=== PATIENT | female | born 1990 | race Caucasian/White ===

== ENCOUNTER 2018-08-26 23:17 | Emergency (ER) | payer OTHER ==
[~2018-08-26] VITALS: Ht 162.6 cm; Wt 70.3 kg
[2018-08-26 23:20] VITALS: BP 134/75
--- NOTE | 2018-08-26 23:26 | NUR ---
PT TAKEN TO BED 1
--- NOTE | 2018-08-26 23:26 | NUR ---
Pt presents to ED with suprapubic pain radiating to left lower back and burning with urination 03/02 pain x1 day. Pt also c/o spotting with controlled bleeding x1 day. Pt states but has first prenatl apointment on 08/31/18. Pt Has x4 living children. X2 misscarriage with DNC. VSS. Positioned in bed for comfort. ER MD aware. Continue to monitor.
[2018-08-27 00:06] LABS: BASOPHILS % (AUTO) 0.6 % (0.0-2.0); EOSINOPHILS # (AUTO) 0.1 K/uL (0-0.4); EOSINOPHILS % (AUTO) 0.7 % (0.0-4.0); HEMATOCRIT 38.5 % (36-48); HEMOGLOBIN 12.6 g/dL (12.0-16.0); LYMPHOCYTES # (AUTO) 2.9 K/uL (2.5-16.5); LYMPHOCYTES % (AUTO) 35.3 % (20.5-51.1); MEAN CORPUSCULAR HEMOGLOBIN 30 pg (27-31); MEAN CORPUSCULAR HGB CONC 33 g/dL (33-37); MEAN CORPUSCULAR VOLUME 92.1 fL (80-94); MONOCYTES # (AUTO) 0.8 K/uL (0.8-1.0); MONOCYTES % (AUTO) 9.1 % (1.7-9.3); NEUTROPHILS # (AUTO) 4.5 K/uL (1.8-7.7); NEUTROPHILS % (AUTO) 54.3 % (42.2-75.2); PLATELET COUNT (AUTO) 254 K/uL (140-450); RED BLOOD CELL COUNT(AUTO) 4.19 MIL/uL (4.20-5.40); RED CELL DISTRIBUTION WIDTH 12.7 % (11.6-13.7); WHITE BLOOD COUNT (AUTO) 8.3 K/uL (4.8-10.8)
[2018-08-27 00:26] LABS: ANION GAP 15.1 (8-16); CARBON DIOXIDE 24.4 mmol/L (21-32); CREATININE 0.6 mg/dL (0.6-1.3); POTASSIUM 3.5 mmol/L (3.5-5.1)
[2018-08-27 00:27] LABS: APPEARANCE,URINE CLOUDY (CLEAR); BILIRUBIN,URINE NEGATIVE (NEGATIVE); BLOOD, URINE 3+ (NEGATIVE); COLOR,URINE YELLOW (YELLOW); LEUKOCYTE ESTERASE ,URINE 3+ (NEGATIVE); NITRITE, URINE NEGATIVE (NEGATIVE); UGLUCOSE NEGATIVE (NEGATIVE)
[2018-08-27 00:29] LABS: RBC,URINE TOO NUMEROUS TO COUN /HPF (0-5); WBC,URINE TOO MANY TO COUNT /HPF (0-5)
[2018-08-27 01:13] VITALS: BP 134/75
== END 2018-08-27 01:13 | disposition home or self-care (01) ==
LOC: MED 23:17
DX: O23.41 Unspecified infection of urinary tract in pregnancy, first trimester (principal); Z3A.08 8 weeks gestation of pregnancy
CPT/HCPCS: 36415; 76801; 80048; 81001; 81025; 84702; 85025; 86900; 86901; 87086; 99284; Q0092

== ENCOUNTER 2018-10-28 21:53 | Emergency (ER) | payer OTHER ==
[~2018-10-28] VITALS: Ht 154.9 cm; Wt 67.6 kg
[2018-10-28 22:05] VITALS: BP 115/77
--- NOTE | 2018-10-28 22:15 | NUR ---
PT AMBULATED TO THE RESTROOM AND BAXCK TO [facility]LL PT VSS Addendum: 10/28/18 at 2220 by MEDNLChe[facility] PT AMBULATED TO THE RESTROOM AND BACK TO [facility] PT VSS
[2018-10-28 22:25] LABS: APPEARANCE,URINE CLOUDY (CLEAR); BILIRUBIN,URINE NEGATIVE (NEGATIVE); BLOOD, URINE TRACE-I (NEGATIVE); COLOR,URINE YELLOW (YELLOW); LEUKOCYTE ESTERASE ,URINE 2+ (NEGATIVE); NITRITE, URINE NEGATIVE (NEGATIVE); UGLUCOSE NEGATIVE (NEGATIVE)
[2018-10-28 22:44] LABS: WBC,URINE TOO MANY TO COUNT /HPF (0-5)
--- NOTE | 2018-10-28 23:04 | NUR ---
PT AMBULATED TO ED 04.
[2018-10-28] MEDS ORDERED: ONDANSETRON 4 MG ODT PO ONE (23:20)
[2018-10-28] MEDS ORDERED: cefTRIAXone 1,000 MG in LIDOCAINE MPF 1% - 5 mL VIAL 2.1 ML IM ONE (23:20)
[2018-10-29 00:20] VITALS: BP 115/77
--- NOTE | 2018-10-29 00:20 | NUR ---
Patient discharged with v/s stable. Written and verbal after care instructions given and explained. Patient alert, oriented and verbalized understanding of instructions. Ambulatory with steady gait. All questions addressed prior to discharge. ID band removed. Patient advised to follow up with PMD. Rx of MACROBID WAS given. Patient educated on indication of medication including possible reaction and side effects. Opportunity to ask questions provided and answered.
== END 2018-10-29 00:20 | disposition home or self-care (01) ==
LOC: MED 21:53
DX: O23.40 Unspecified infection of urinary tract in pregnancy, unspecified trimester (principal); O26.892 Other specified pregnancy related conditions, second trimester; R05 Cough; Z3A.14 14 weeks gestation of pregnancy
CPT/HCPCS: 36415; 81001; 84702; 87086; 87804; 96372; 99283; J0696; J2001; Q0162

== ENCOUNTER 2019-02-22 15:29 | Observation (INO) | payer OTHER ==
[~2019-02-22] VITALS: Ht 154.9 cm; Wt 70.9 kg
[2019-02-22 15:35] VITALS: BP 111/74
--- NOTE | 2019-02-22 15:45 | NUR ---
CALLED [phone]D SPOKE TO YI. NOTIFIED THAT PT WAS BEING TRIAGED.
--- NOTE | 2019-02-22 15:49 | NUR ---
PER DR. CHUNG PT TO GO TO L&D. CALLED L&D SPOKE TO XOCHITL [place] GOING TO ROOM 2.
[2019-02-22 17:17] VITALS: BP 111/65
[2019-02-22 18:19] LABS: BASOPHILS % (AUTO) 0.4 % (0.0-2.0); EOSINOPHILS # (AUTO) 0.1 K/uL (0-0.4); EOSINOPHILS % (AUTO) 0.7 % (0.0-4.0); HEMATOCRIT 35.1 % (36-48); HEMOGLOBIN 11.7 g/dL (12.0-16.0); LYMPHOCYTES % (AUTO) 22.6 % (20.5-51.1); MEAN CORPUSCULAR HEMOGLOBIN 31 pg (27-31); MEAN CORPUSCULAR HGB CONC 33 g/dL (33-37); MEAN CORPUSCULAR VOLUME 93.2 fL (80-94); MONOCYTES # (AUTO) 0.5 K/uL (0.8-1.0); NEUTROPHILS # (AUTO) 6.3 K/uL (1.8-7.7); NEUTROPHILS % (AUTO) 70.3 % (42.2-75.2); PLATELET COUNT (AUTO) 197 K/uL (140-450); RED BLOOD CELL COUNT(AUTO) 3.77 MIL/uL (4.20-5.40); RED CELL DISTRIBUTION WIDTH 14.4 % (11.6-13.7)
[2019-02-22 18:50] LABS: PROTHROMBIN TIME 8.8 secs (10.8-13.4)
[2019-02-22 18:54] LABS: APPEARANCE,URINE CLEAR (CLEAR); BILIRUBIN,URINE NEGATIVE (NEGATIVE); BLOOD, URINE NEGATIVE (NEGATIVE); COLOR,URINE YELLOW (YELLOW); LEUKOCYTE ESTERASE ,URINE NEGATIVE (NEGATIVE); NITRITE, URINE NEGATIVE (NEGATIVE); UGLUCOSE NEGATIVE (NEGATIVE)
[2019-02-22] MEDS ORDERED: TERBUTALINE 1 MG/ML VIAL SUBQ ONE ×2 (19:30→19:45)
[2019-02-22] MEDS: LACTATED RINGERS 1,000 ML IV SCH (20:15)
[2019-02-22] MEDS ORDERED: NALBUPHINE 10 MG/ML AMP IVP SCH (21:00)
[2019-02-23] MEDS ORDERED: TERBUTALINE 2.5 MG TAB ONE ×3 (00:03→12:27)
[2019-02-23] MEDS ORDERED: BETAMETH ACET/BETAMETH NA PH 30 MG/5 ML VIAL IM ONE ×3 (00:05→12:26)
[2019-02-23] MEDS: TERBUTALINE 2.5 MG TAB PO SCH ×3 (00:06→12:20)
[2019-02-23] MEDS ORDERED: NALBUPHINE 10 MG/ML AMP ONE (00:19)
[2019-02-23] MEDS: LACTATED RINGERS 1,000 ML IV SCH (04:09)
--- NOTE | 2019-02-23 09:08 | NUR ---
PATIENT HAS BEEN SCREENED AND CATEGORIZED LOW NUTRITION RISK. PATIENT WILL BE SEEN WITHIN 7 DAYS OF ADMISSION. 03/01/[address]
== END 2019-02-23 16:00 | disposition home or self-care (01) ==
LOC: MED 15:29 → MLD 15:50 → MED 15:50 → MLD 15:51
PROVIDERS: ADMIT Obstetrics & Gynecology; ATTEND Obstetrics & Gynecology
DX: O26.893 Other specified pregnancy related conditions, third trimester (principal); R10.9 Unspecified abdominal pain; O99.89 Other specified diseases and conditions complicating pregnancy, childbirth and the puerperium; M54.9 Dorsalgia, unspecified; Z3A.30 30 weeks gestation of pregnancy
CPT/HCPCS: 36415; 76805; 81003; 85025; 85379; 85610; 85730; 96372; 96374; 99281; G0378; J0702; J2300; J3105; J7120; Q0092

== ENCOUNTER 2019-06-07 20:09 | Emergency (ER) | payer OTHER ==
[~2019-06-07] VITALS: Ht 154.9 cm; Wt 67.6 kg
[2019-06-07 20:28] VITALS: BP 112/64
--- NOTE | 2019-06-07 20:33 | NUR ---
PT TO BED 4 WITH STEADY GAIT
--- NOTE | 2019-06-07 20:55 | NUR ---
28 YO F BIB SELF PRESENTS TO ED C/O CONTINUOUS VAGINAL BLEEDING X 7 WEEKS. PT STATES "I HAVE NOT STOPPED BLEEDING SINCE I GAVE ON 04/18/19". PT REPORTS BLEEDING EVERYDAY; "SOME DAYS ARE LIKE A REGULAR PERIOD AND SOME DAYS I HAVE HEAVY BLOOD CLOTS". PT ALSO REPORTS DIZZINESS AND LOWER ABD CRAMPS X 7 WEEKS. PT HAD UNCOMPLICATED VAGINAL AT 38 WEEKS. PT REPORTS 5 WEEKS AFTER OBGYN GAVE PT 3 PILLS OT STOP THE BLEEDING; PT CANT RECALL NAME; PROVIDED NO RELIEF. -- PT AWAKE, A/O X 4, CALM, COOPERATIVE. ANSWERS QUESTIONS IN CLEAR, FULL SENTENCES. BEHAVIOR AGE APPROPRIATE. -- SKIN PINK, WARM, DRY. BREATHING EVEN, UNLABORED. PMH-- DENIES RX-- DENIES
--- NOTE | 2019-06-07 21:05 | NUR ---
Dr. Medina examining patient.
--- NOTE | 2019-06-07 21:20 | NUR ---
US AT BEDSIDE.
[2019-06-07 22:11] LABS: BASOPHILS % (AUTO) 0.6 % (0.0-2.0); EOSINOPHILS # (AUTO) 0.2 K/uL (0-0.4); EOSINOPHILS % (AUTO) 2.8 % (0.0-4.0); HEMATOCRIT 37.7 % (36-48); HEMOGLOBIN 12.5 g/dL (12.0-16.0); LYMPHOCYTES # (AUTO) 2.5 K/uL (2.5-16.5); LYMPHOCYTES % (AUTO) 45.6 % (20.5-51.1); MEAN CORPUSCULAR HEMOGLOBIN 32 pg (27-31); MEAN CORPUSCULAR HGB CONC 33 g/dL (33-37); MEAN CORPUSCULAR VOLUME 95.9 fL (80-94); MONOCYTES # (AUTO) 0.5 K/uL (0.8-1.0); MONOCYTES % (AUTO) 8.5 % (1.7-9.3); NEUTROPHILS # (AUTO) 2.3 K/uL (1.8-7.7); NEUTROPHILS % (AUTO) 42.5 % (42.2-75.2); PLATELET COUNT (AUTO) 293 K/uL (140-450); RED BLOOD CELL COUNT(AUTO) 3.93 MIL/uL (4.20-5.40); RED CELL DISTRIBUTION WIDTH 13.6 % (11.6-13.7); WHITE BLOOD COUNT (AUTO) 5.5 K/uL (4.8-10.8)
[2019-06-07 22:22] LABS: ANION GAP 13.3 (8-16); CARBON DIOXIDE 25.3 mmol/L (21-32); CREATININE 0.6 mg/dL (0.6-1.3); POTASSIUM 3.6 mmol/L (3.5-5.1)
--- NOTE | 2019-06-07 22:23 | NUR ---
PT RESTING COMFORTABLY IN BED WITH VSS. SKIN PINK, WARM, DRY. BREATHING EVEN, UNLABORED. NO COMPLAINTS AT THIS TIME.
[2019-06-07 22:26] LABS: APPEARANCE,URINE BLOODY (CLEAR); BILIRUBIN,URINE NEGATIVE (NEGATIVE); BLOOD, URINE 3+ (NEGATIVE); COLOR,URINE RED (YELLOW); LEUKOCYTE ESTERASE ,URINE TRACE (NEGATIVE); NITRITE, URINE POSITIVE (NEGATIVE); PH,URINE 6.5 (5.0-9.0); UGLUCOSE NEGATIVE (NEGATIVE)
[2019-06-07 22:33] LABS: ALBUMIN 3.8 g/dL (3.4-5.0); TOTAL BILIRUBIN 0.2 mg/dL (0.0-1.0)
[2019-06-07 23:00] LABS: RBC,URINE TOO NUMEROUS TO COUN /HPF (0-5)
--- NOTE | 2019-06-07 23:35 | NUR ---
PT SITTING COMFORTABLY IN BED. VSS. NO COMPLAINTS AT THIS TIME.
--- NOTE | 2019-06-08 00:12 | NUR ---
DR. REED REEVALUATING AT BEDSIDE.
[2019-06-08 00:19] VITALS: BP 130/85
--- NOTE | 2019-06-08 00:19 | NUR ---
Patient discharged with v/s stable. Written and verbal after care instructions given and explained. Patient verbalized understanding. Ambulatory with steady gait. All questions addressed prior to discharge. Advised to follow up with PMD. Dr. Medina will call back with US results.
--- NOTE | 2019-06-08 00:35 | NUR ---
Note jannet in EDM - 06/08/19 at 0125 by [facility] PT SITTING COMFORTABLY IN BED. VSS. NO COMPLAINTS AT THIS TIME.
== END 2019-06-08 00:19 | disposition home or self-care (01) ==
LOC: MED 20:09
DX: N93.9 Abnormal uterine and vaginal bleeding, unspecified (principal)
CPT/HCPCS: 36415; 76856; 80053; 81001; 81025; 85025; 86886; 86900; 86901; 87086; 99284